=== PATIENT | male | born 1975 | race Caucasian/White ===

== ENCOUNTER 2016-10-29 01:49 | Inpatient (IN) | payer OTHER ==
--- NOTE | 2016-10-29 03:26 | ED ---
Psych HPI - General Source: patient, RN notes reviewed Mode of arrival: ambulatory <Ifeanyi Mario - Last Filed: 10/29/16 03:24> <Kd Carl - Last Filed: 10/29/16 07:16> - General Chief Complaint: Psychiatric Symptoms Stated Complaint: Mental Health Time Seen by Provider: 10/29/16 02:10 - History of Present Illness Initial Comments: 41-year-old male presents emergency department for psychiatric evaluation. Patient states that he is very depressed and suicidal. Patient states he just does not want to live anymore. Patient states that he has been rehab for alcohol and past states he has been sober but he may have started drinking again. Patient also uses marijuana. Patient states that he does have planned to kill himself though he does not want to tell me what this is. Patient states that he has seen psychiatrists in the past and has been placed on medication though she states that helping. Patient states he came here because he cannot do it anymore. (Ifeanyi Mario) - Related Data Home Medications Medication Instructions Recorded Confirmed QUEtiapine [SEROquel] 100 mg PO DAILY 10/29/16 10/29/16 Allergies Allergy/AdvReac Type Severity Reaction Status Date / Time No Known Allergies Allergy Verified 10/29/16 01:58 Review of Systems ROS Other: All systems not noted in ROS Statement are negative. <Ifeanyi Mario - Last Filed: 10/29/16 03:24> ROS Other: All systems not noted in ROS Statement are negative. <Kd Carl - Last Filed: 10/29/16 07:16> ROS Statement: Those systems with pertinent positive or pertinent negative responses have been documented in the HPI. Past Medical History Past Medical History: No Reported History Past Surgical History: No Surgical Hx Reported Past Psychological History: Bipolar, Depression Smoking Status: Current some day smoker Past Alcohol Use History: Daily Past Drug Use History: Marijuana <Ifeanyi Mario - Last Filed: 10/29/16 03:24> General Exam Limitations: no limitations General appearance: alert, in no apparent distress Head exam: Present: atraumatic, normocephalic, normal inspection Respiratory exam: Present: normal lung sounds bilaterally. Absent: respiratory distress, wheezes, rales, rhonchi, stridor Cardiovascular Exam: Present: regular rate, normal rhythm, normal heart sounds. Absent: systolic murmur, diastolic murmur, rubs, gallop, clicks Neurological exam: Present: alert, oriented X3, CN II-XII intact Psychiatric exam: Present: depressed Skin exam: Present: warm, dry, intact, normal color. Absent: rash <Ifeanyi Mario - Last Filed: 10/29/16 03:24> Course <Ifeanyi Mario - Last Filed: 10/29/16 03:24> <Kd Carl - Last Filed: 10/29/16 07:16> Vital Signs 10/29/16 10/29/16 01:52 06:00 Temperature 96.9 F L Pulse Rate 82 57 L Respiratory 18 18 Rate Blood Pressure 127/76 119/77 O2 Sat by Pulse 99 99 Oximetry - Reevaluation(s) Reevaluation #1: 10/29/16 07:13 Patient was reevaluated, no acute distress, no new complaints. Patient is currently awaiting admission to inpatient psychiatric treatment and evaluation. (Kd Carl) Medical Decision Making <Ifeanyi Mario - Last Filed: 10/29/16 03:24> <Kd Carl - Last Filed: 10/29/16 07:16> - Medical Decision Making 41-year-old male presented for suicidal ideation. Patient does admit to having a plan of killing himself in the bathtub. She was evaluated by EPS. Did recommend inpatient admission. Diagnosis: Depression, suicidal ideation (Kd Carl) - Lab Data Lab Results 10/29/16 Range/Units 02:23 Urine Opiates Screen Not Detected (NotDetected) Ur Oxycodone Screen Not Detected (NotDetected) Urine Methadone Screen Not Detected (NotDetected) Ur Propoxyphene Screen Not Detected (NotDetected) Ur Barbiturates Screen Not Detected (NotDetected) U Tricyclic Antidepress Not Detected (NotDetected) Ur Phencyclidine Scrn Not Detected (NotDetected) Ur Amphetamines Screen Not Detected (NotDetected) U Methamphetamines Scrn Not Detected (NotDetected) U Benzodiazepines Scrn Not Detected (NotDetected) Urine Cocaine Screen Not Detected (NotDetected) U Marijuana (THC) Screen Detected H (NotDetected) Disposition <Ifeanyi Mario M - Last Filed: 10/29/16 03:24> Decision to Admit Reason: Admit from EC <Kd aCrl - Last Filed: 10/29/16 07:16> Clinical Impression: Depression, Suicidal ideation Disposition: ADMITTED IP TO THIS [facility] Condition: Stable Referrals: Nonstaff,Physician [Primary Care Provider] - 1-2 days
[2016-10-29] MEDS ORDERED: MAG HYDROX/AL HYDROX/SIMETH 30 ML CUP PO PRN (07:43)
[2016-10-29] MEDS ORDERED: LORazepam 1 MG TAB PO PRN (07:43)
[2016-10-29] MEDS ORDERED: ACETAMINOPHEN TAB 325 MG TAB PO PRN (07:43)
[2016-10-29] MEDS ORDERED: MAGNESIUM HYDROXIDE 2,400 MG/10 ML CUP PO PRN (07:43)
[2016-10-29] MEDS ORDERED: OLANZapine ODT 5 MG TAB PO PRN (07:47)
[2016-10-29] MEDS ORDERED: QUEtiapine 100 MG TAB PO PRN (08:08)
[2016-10-29 10:59] VITALS: BMI 23.6
[2016-10-29] MEDS ORDERED: ONDANSETRON ODT 8 MG TAB.RAPDIS PO PRN (12:33)
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
[2016-10-29] MEDS: NICOTINE 21MG/24HR PATCH TRANSDERM SCH (12:45)
[2016-10-29] MEDS: NALTREXONE HCL 50 MG TAB PO SCH (13:12)
[2016-10-29] MEDS: QUEtiapine 100 MG TAB PO SCH (13:12)
[2016-10-29] MEDS: VENLAFAXINE HCL 37.5 MG TAB PO SCH (13:13)
[2016-10-29] MEDS: DIAZEPAM 5 MG TAB PO SCH ×3 (14:27→21:42)
--- NOTE | 2016-10-29 16:49 | P.HPMEDMHU ---
History of Present Illness H&P Date: 10/29/16 Chief Complaint: suicidal ideation Patient is a 41 -year-old male with a history of nicotine abuse, alcohol abuse, and illicit drug use who presented with suicidal ideation. He complains of decreased appetite with approximately a 60 pound weight loss in the last 6 months. He's been having some nausea and vomiting for the last 2 weeks. He has had some intermittent abdominal pain that feels like a hot knife underneath his left rib cage. It is intermittent in nature. He has not tried anything that has helped. He was told he had ulcers in the past and had been on a PPI but had to stop that after losing his insurance. Increased heartburn. Review of Systems General: no fever/chills, no rigors, no weight loss/weight gain, no change in appetite Eyes: No double vision, no unusual blurry vision, no loss of vision ENT: No rhinorrhea, congestion, no trush Cardiovascular: No chest pain, no palpitations, no syncope, no edema, Noo paroxysmal nocturnal dyspnea, No dizziness Pulmonary: No shortness of breath, no wheezing, no cough, hemoptysis Abdominal: No abdominal pain, no constipation, no diarrhea, + vomiting, no nausea, no distention Genitourinary: No dysuria, no urinary frequency, no hematuria, no unusual discharge/odor Neuro: No unusual paresthesias, no unusual paresis/paralysis, no headache Dermatologic: No unusual rashes, no unusual lesions, no unusual changes in nails Endocrinology: No intolerance to heat/cold, no excessive thirst,] no unusual fatigue Hematologic: No unusual bruising or bleeding, no unusual cervical lymphadenopathy Psychiatric: Suicidal ideation, + insomnia Past Medical History Additional Past Medical History / Comment(s): peptic ulcer History of Any Multi-Drug Resistant Organisms: None Reported Past Surgical History: No Surgical Hx Reported Past Anesthesia/Blood Transfusion Reactions: No Reported Reaction Additional Past Anesthesia/Blood Transfusion Reaction / Comment(s): Pt. denies having a blood transfusion. Past Psychological History: Bipolar, Depression Smoking Status: Former smoker Past Alcohol Use History: Daily, Occasional Additional Past Alcohol Use History / Comment(s): Pt. drank 1/5th on 10/27/16, a pint on 10/25 & 10/26/16, as he relapsed on alcohol. Shira. 0.140 on adm. Past Drug Use History: Marijuana Additional Drug Use History / Comment(s): UDS positive for MJ. - Past Family History Mother Additional Family Medical History / Comment(s): Multiple persons with myocardial infarction, Mother small brain tumor uknown if cancerous Medications and Allergies Home Medications Medication Instructions Recorded Confirmed Type QUEtiapine FUMARATE [SEROquel] 200 mg PO HS 10/29/16 10/29/16 History QUEtiapine [SEROquel] 100 mg PO DAILY 10/29/16 10/29/16 History Allergies Allergy/AdvReac Type Severity Reaction Status Date / Time No Known Allergies Allergy Verified 10/29/16 11:56 Physical Exam Osteopathic Statement: *. No significant issues noted on an osteopathic structural exam other than those noted in the History and Physical/Consult. Vitals: Vital Signs Temp Pulse Pulse Resp BP BP Pulse Ox 10/29/16 08:59 97.6 F 68 20 125/81 99 10/29/16 06:00 57 L 18 119/77 99 10/29/16 01:52 96.9 F L 82 18 127/76 99 Intake and Output 10/28/16 10/29/16 10/29/16 22:59 06:59 14:59 Other: Weight 83.915 kg 78.8 kg Patient Weight 10/30/16 06:59 Weight 78.8 kg General: non toxic, no distress, appears at stated age, normal weight Derm: no rashes, no lesions, no ulcers, no unusual ecchymoses, multiple pinpoint areas of erythema on chest and back Head: atraumatic, normocephalic, symmetric Eyes: EOMI, no lid lag, anicteric sclera, pupils equal round reactive to light ENT: no post nasal drip, no thrush , nearest patent, no pharyngeal erythema Neck: No thyromegaly, no cervical lymphadenopathy, trachea midline, supple Mouth: no lip lesion, mucus membranes moist Cardiovascular: S1S2 reg, no murmur, positive posterior tibial pulse bilateral, no edema , no JVD, no clubbing, no cyanosis, capillary refill less than 2 seconds Lungs: CTA bilateral, no rhonchi, no rales , no accessory muscle use Abdominal: soft, nontender to palpation, no guarding, no appreciable organomegaly, normal bowel sounds Ext: no gross muscle atrophy, muscle strength 5 out of 5 in all 4 extremities grossly, no contractures, Neuro: CN II-XI grossly intact, light touch intact all 4 extremities, finger to nose within normal limits, Psych: Alert, oriented, flat affect Cranial Nerve Examination - Cranial Nerves Cranial Nerve II- Optic: Intact Cranial Nerve III- Oculomotor: Intact Cranial Nerve IV- Trochlear: Intact Cranial Nerve V- Trigeminal: Intact Cranial Nerve - Abducens: Intact Cranial Nerve VII- Facial: Intact Cranial Nerve VIII- Auditory: Intact Cranial Nerve IX- Glossopharyngeal: Intact Cranial Nerve X- Vagus: Intact Cranial Nerve XI- Accessory: Intact Cranial Nerve XII- Hypoglossal: Intact Results Labs: Abnormal Lab Results - Last 24 Hours (Table) 10/29/16 Range/Units 02:23 U Marijuana (THC) Screen Detected H (NotDetected) Assessment and Plan Plan: #Nausea and vomiting with history of acid reflux-start twice a day PPI, patient told to prostatitis see him again if this does not improve #Tobacco abuse-cessation recommended #Alcohol abuse-[facility] protocol, Thiamine and folic acid supplementation Thank you for allowing us to participate in the care of this patient. We will follow peripherally. Do not hesitate to contact us with questions. Someone can be reached from the [facility] hospitalist group at all hours of the day at [phone].
[2016-10-29] MEDS: PANTOPRAZOLE 40 MG TABLET PO SCH (18:06)
[2016-10-29] MEDS: QUEtiapine 200 MG TAB PO SCH (21:42)
[2016-10-30] MEDS: PANTOPRAZOLE 40 MG TABLET PO SCH ×2 (07:56→16:31)
[2016-10-30] MEDS: NALTREXONE HCL 50 MG TAB PO SCH (08:49)
[2016-10-30] MEDS: QUEtiapine 100 MG TAB PO SCH (08:50)
[2016-10-30] MEDS: DIAZEPAM 5 MG TAB PO SCH ×3 (08:50→21:00)
[2016-10-30] MEDS: NICOTINE 21MG/24HR PATCH TRANSDERM SCH (08:52)
[2016-10-30 09:02] LABS: Basophils % (A) 1 %; CH 31.7; CHCM 36.5; Eosinophils # (A) 0.1 k/uL (0-0.7); Eosinophils % (A) 2 %; HDW 2.77; HGB 16.5 gm/dL (13.0-17.5); Luc # (Auto) 0.07; Luc % (Auto) 1; Lymphocytes % (A) 19 %; MCH 31.3 pg (25.0-35.0); MCHC 35.9 g/dL (31.0-37.0); MCV 87.1 fL (80.0-100.0); Mean Platelet Volume 6.8; Monocytes # (A) 0.3 k/uL (0-1.0); Monocytes % (A) 6 %; Neutrophils # (A) 3.8 k/uL (1.3-7.7); Neutrophils % (A) 72 %; RBC 5.28 m/uL (4.30-5.90); RDW 13.7 % (11.5-15.5); WBC 5.3 k/uL (3.8-10.6)
[2016-10-30 09:18] LABS: ALT 33 U/L (21-72); AST 22 U/L (17-59); Alkaline Phosphatase 78 U/L (38-126); Anion Gap 10 mmol/L; Blood Urea Nitrogen 14 mg/dL (9-20); Calcium 9.5 mg/dL (8.4-10.2); Carbon Dioxide 26 mmol/L (22-30); Chloride 103 mmol/L (98-107); Glucose 97 mg/dL (74-99); Non-African American GFR(MDRD) >60 (>60 ml/min/1.73 sqM); Potassium 4.1 mmol/L (3.5-5.1); Sodium 139 mmol/L (137-145); Total Bilirubin 2.4 mg/dL (0.2-1.3); Total Protein 6.3 g/dL (6.3-8.2)
[2016-10-30] MEDS: VENLAFAXINE HCL 37.5 MG TAB PO SCH (09:36)
[2016-10-30] MEDS: THIAMINE 100 MG TAB PO SCH (12:19)
[2016-10-30] MEDS: FOLIC ACID 1 MG TAB PO SCH (12:19)
--- NOTE | 2016-10-30 12:19 | P.PN ---
Progress Note - Text Date of service: 10/30/2016 Chief complaint: "I feel I want to go home" Subjective: The patient has been seen today as follow-up, chart reviewed, case discussed with the treatment team. Patient slept about 4-6 hours last night. Patient has been not going to groups and other unit activities. Patient reports still has poor appetite problems. The patient had worsening of alcohol withdrawal symptoms last night and he developed shaking, sweating, increased HR and nausea. He has been started on Valium taper and CIWA monitoring. He reports today has been feeling better, and denies shaking, tremors or sweating today. He reports nausea is better and denies vomiting. CIWA trending down and earlier today was 4. Patient has to complete Valium taper before discharge. He has been explained about the risk of alcohol withdrawal. Patient minimized depression and denies suicidal thoughts today. He was fixated on going home and feels "crisis is gone." The patient reports still has some anxiety and sometimes racing thoughts. In general patient tried to minimized symptoms to get discharged. The patient is compliant with his medications and denies any adverse reactions. Review of other systems: Patient denies any physical symptoms besides what has been mentioned above. No breathing problems, no chest pain reported today. Objective: Vitals has been reviewed. Mental status examination; Appearance: The patient appears older than stated age, poorly groomed and disheveled, no specific features. Gait/posture: Slight imbalance but able to support himself, No abnormal movements. Attitude and behavior: not fully engaged, superficially cooperative, intermittent eye contact. Motor activity: Increased psychomotor activity Speech: Soft, low tone Mood: Depressed Affect: Blunted Thought form: goal-directed, linear, coherent. Thought content: Non-delusional, denies suicidal thoughts. denies homicidal thoughts. Perception: Denies any auditory or visual hallucinations Attention: No impairment. Orientation: Patient patient was fully oriented to time place person and situation. Insight: Patient has limited insight about his psychiatric disorder. Judgment: Patient has limited judgment about his psychiatric treatment. Assessment: Unspecified mood disorder Rule out Bipolar II disorder, depressive episodes without psychosis Alcohol use disorder, severe Cannabis use disorder, severe Plan: Continue with inpatient psychiatric hospitalization for monitoring and continue treatment. Continue group therapy and other unit activities. Continue follow up with medical team to address physical problems including on Bilirubin level and elevated Creatinine Continue psychiatric medications: Effexor XR 37.5 mg PO daily for depression symptoms Seroquel 100mg am and 200mg HS as mood stabilizer for mood symptoms Naltrexone 25mg PO daily for 3 days then 50mg daily for alcohol cravings CIWA monitoriong for alcohol withdrawal Valium taper for alcohol withdrawal started yesterday and will be completed on Monday. Discharge planning is ongoing.
[2016-10-30] MEDS: QUEtiapine 200 MG TAB PO SCH (21:00)
[2016-10-31 06:19] VITALS: BP 132/70; PULSE 62; RESP 20; TEMP 97.7
[2016-10-31] MEDS: NICOTINE 21MG/24HR PATCH TRANSDERM SCH (08:23)
[2016-10-31] MEDS: FOLIC ACID 1 MG TAB PO SCH (08:24)
[2016-10-31] MEDS: QUEtiapine 100 MG TAB PO SCH (08:24)
[2016-10-31] MEDS: NALTREXONE HCL 50 MG TAB PO SCH (08:24)
[2016-10-31] MEDS: VENLAFAXINE HCL 37.5 MG TAB PO SCH (08:24)
[2016-10-31] MEDS: THIAMINE 100 MG TAB PO SCH (08:24)
[2016-10-31] MEDS: PANTOPRAZOLE 40 MG TABLET PO SCH (08:24)
[2016-10-31] MEDS ORDERED: DIAZEPAM 5 MG TAB PO SCH (09:00)
[2016-11-01] MEDS ORDERED: DIAZEPAM 5 MG TAB PO SCH (09:00)
--- NOTE | 2016-11-02 10:14 | DS ---
DATE OF SERVICE: 10/31/2016. DATE OF ADMISSION: 10/29/2016. DATE OF DISCHARGE : 10/31/2016. ADMISSION AND DISCHARGE DIAGNOSIS: 1. Unspecified mood disorder. 2. Rule out bipolar 2 disorder. 3. Depressive episodes without psychosis. 4. Alcohol use disorder, severe. 5. Cannibis use disorder, severe. HISTORY OF PRESENTING ILLNESS: The patient was admitted due to depression with suicidal thoughts, contemplating drowning himself int he bathtub. He reported worsening depression since March. He reported a history of bipolar disorder. He had been on Seroquel which he said was helping keep his bipolar disorder stable. He felt overwhelmed at his job. He had relapsed to alcohol use after 2 years of sobriety. He smokes marijuana once or twice daily. He had a full range of depression symptoms. He reported severe anxiety and panic attacks. He was admitted for further evaluation. For further history, please refer to the psychiatric admission note of Dr. Paz. PAST MEDICAL HISTORY AND PHYSICAL EXAM: As per Dr. Gee. MENTAL STATUS EXAM: The patient had some difficulties with balance, he had intermittent eye contact, there was increased psychomotor activity. Speech was soft and low tone. His mood was depressed, affect blunted. Thoughts appropriate. There was no indication of thought disorder. Cognition was clear. DIAGNOSTIC STUDIES: CBC and comprehensive metabolic profile were unremarkable except for an elevated creatinine of 1.29. TSH 2.0, urine drug screen positive for marijuana. COURSE OF HOSPITALIZATION: The patient was admitted for a comprehensive medical , psychiatric and psychosocial evaluation. We made efforts to engage the patient in individual and group therapeutic activities. He was continued on his outpatient medication of Seroquel 100 mg in the morning, 200 mg at bedtime. He was also started on ReVia 50 mg a day for issues related to withdrawal. He also was started on Effexor XR 75 mg a day. The patient did not attend groups. He did not show significant withdrawal issues. On the first day of admission he did have one CIWA score of 18. He had a subsequent score of 10 and then the remainder of the scores were all near 0. He very much was focused on discharge. He was stating that the thoughts of suicide were just situationally based and that he had plans in place to help deal with his needs. He did not have insurance and was willing to be referred to [facility]. He actively engaged in discharge planning. He noted that he has medications at home, namely Seroquel and felt that he was doing fairly well with his medications. He pushed for an early discharge in part because didn' t have insurance. He believed if he was discharged, he could get back to work and his other responsibilities. He was very clear about the idea that he was not having thoughts of self harm beyond just a situational situation leading up to his hospitalization. He was focused on not using alcohol or marijuana. He had done fairly well in regards to staying off of alcohol and seemed to have reasonable insight in regards to need to stay completely off of marijuana as well. During his hospitalization, he had one period where he had elevated vital signs, including a pulse of 130 and a blood pressure of 142/68, otherwise the remainder of his vital signs that were checked closely were within normal range. CONDITION ON DISCHARGE: The patient was stable, his mood was improved. He had made efforts to get engaged in the discharge planning process. He reported motivation towards maintaining off of abusive substances. RECOMMENDATIONS AND FOLLOW UP: The patient is discharged to home. He will continue Seroquel 100 mg in the morning, 200 mg in the evening. He indicated that he has a prescription for these medications with at least one refill. I did discontinue Effexor XR given that he only had a very short hospital stay and that there was not adequate time to fully assess the medication at a therapeutic dose. I provided him a script of ReVia 50 mg daily. The patient was unsure whether he would be able to fill that prescription at present because of lack of insurance. He has a follow up appointment at [facility], 10/23/16 at 8:30 in the morning. He will address further medication issues at that time. TAWNYA
== END 2016-10-31 14:45 | disposition home or self-care (01) | DRG 885 ==
LOC: EC 01:49 → 3MHU 07:39
PROVIDERS: ADMIT Psychiatry & Neurology Psychiatry; ATTEND Psychiatry & Neurology Psychiatry
DX: F31.9 Bipolar disorder, unspecified (principal); R45.851 Suicidal ideations; F10.239 Alcohol dependence with withdrawal, unspecified; F12.20 Cannabis dependence, uncomplicated; Z71.6 Tobacco abuse counseling; F17.220 Nicotine dependence, chewing tobacco, uncomplicated; F41.0 Panic disorder [episodic paroxysmal anxiety]; Z79.899 Other long term (current) drug therapy; Z91.5 Personal history of self-harm; Z60.2 Problems related to living alone; Z56.0 Unemployment, unspecified; Z81.8 Family history of other mental and behavioral disorders; R11.2 Nausea with vomiting, unspecified; K21.9 Gastro-esophageal reflux disease without esophagitis; N41.9 Inflammatory disease of prostate, unspecified
CPT/HCPCS: 80053; 80306; 82075; 84443; 85025

== ENCOUNTER 2017-12-10 23:47 | Emergency (ER) | payer MEDICAID, OTHER ==
[2017-12-10 23:55] VITALS: RESP 18
[2017-12-11] MEDS ORDERED: ORPHENADRINE 30 MG/ML 2 ML VIAL IM STA (00:37)
[2017-12-11] MEDS ORDERED: KETOROLAC 30 MG/ML 1 ML VIAL IM STA (00:37)
--- NOTE | 2017-12-11 00:42 | ED ---
Back Pain HPI - General Chief Complaint: Back Pain/Injury Stated Complaint: [facility] back pain Time Seen by Provider: 12/11/17 00:25 Source: patient, RN notes reviewed Mode of arrival: ambulatory Limitations: no limitations - History of Present Illness Initial Comments: This is a 42-year-old male who presents to the emergency department with chief complaint work-related back pain. 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 He states that 2 weeks ago he injured his back while lifting a fixture. Patient states that tonight he was kneeling, went to lift a fixture and felt instant tightening and pulling sensation along the low back. He reports muscle spasms. He states that he has been taking Motrin at home for his previous back injury. He denies saddle paresthesias or loss of bladder or bowel function. He denies IV drug use. He denies radiation of pain down the legs or numbness or tingling. Denies fevers or chills, chest pain or shortness of breath. - Related Data Home Medications Medication Instructions Recorded Confirmed QUEtiapine FUMARATE [SEROquel] 200 mg PO HS 10/29/16 12/10/17 QUEtiapine [SEROquel] 100 mg PO DAILY 10/29/16 12/10/17 Previous Rx's Medication Instructions Recorded Cyclobenzaprine [Flexeril] 10 mg PO TID #15 tab 12/11/17 Allergies Allergy/AdvReac Type Severity Reaction Status Date / Time No Known Allergies Allergy Verified 12/10/17 23:54 Review of Systems ROS Statement: Those systems with pertinent positive or pertinent negative responses have been documented in the HPI. ROS Other: All systems not noted in ROS Statement are negative. Past Medical History Past Medical History: No Reported History Additional Past Medical History / Comment(s): peptic ulcer History of Any Multi-Drug Resistant Organisms: None Reported Past Surgical History: No Surgical Hx Reported Past Anesthesia/Blood Transfusion Reactions: No Reported Reaction Additional Past Anesthesia/Blood Transfusion Reaction / Comment(s): Pt. denies having a blood transfusion. Past Psychological History: Bipolar, Depression Smoking Status: Former smoker Past Alcohol Use History: None Reported Past Drug Use History: None Reported - Past Family History Mother Additional Family Medical History / Comment(s): Multiple persons with myocardial infarction, Mother small brain tumor uknown if cancerous General Exam - General Exam Comments Initial Comments: General: Awake and alert, well-developed; in no apparent distress. HEENT: Head atraumatic, normocephalic. Pupils are equal, round and reactive to light. Extraocular movements intact. Oropharynx moist without erythema or exudate. Neck: Supple. Normal ROM. Cardiovascular: Regular rate and rhythm. No murmurs, rubs or gallops. Chest symmetrical. Pedal pulses 2+ equal and palpable bilaterally. Respiratory: Lungs clear to auscultation bilaterally. No wheezes, rales or rhonchi. Normal respiratory effort with no use of accessory muscles. Musculoskeletal: Normal ROM, no tenderness bilateral upper and lower extremities. Ambulating normally. Skin: [place], warm and dry without rashes or lesions. Neurological: Alert and oriented x3. CN II-XII grossly intact. Speech is fluent and answers are appropriate. No focal neuro deficits. Psychiatric: Normal mood and affect. No overt signs of depression or anxiety noted. Limitations: no limitations Back exam: Present: normal inspection, full ROM, paraspinal tenderness ( bilateral lumbar). Absent: vertebral tenderness Course Vital Signs 12/10/17 23:51 Temperature 97.8 F Pulse Rate 94 Respiratory 18 Rate Blood Pressure 115/80 O2 Sat by Pulse 98 Oximetry Medical Decision Making - Medical Decision Making This is a 42-year-old male who presents to the emergency department with chief complaint of low back injury. Patient reports lifting a fixture at work this evening and feeling a tightening and pulling sensation along the low back. Patient states he injured his low back 2 weeks ago at work as well. He denies saddle paresthesias or loss of bladder or bowel function. Denies falls. Patient is neurovascularly intact. Given Toradol and Norflex while in the emergency department. Patient will be provided with a prescription for muscle relaxers. He states he takes Motrin already at home for previous back injury. Vitals are stable and he is in no acute distress. He will be discharged home at this time. Patient is in agreement with plan and voices understanding. All questions were answered. Disposition Clinical Impression: Strain of lumbar region Disposition: HOME SELF-CARE Condition: Good Instructions: Acute Low Back Pain (ED), Low Back Strain (ED) Additional Instructions: Please take medications as prescribed. Please follow up with primary care provider within 1-2 days. Return to emergency department if symptoms should worsen or any concerns arise. Prescriptions: Cyclobenzaprine [Flexeril] 10 mg PO TID #15 tab Is patient prescribed a controlled substance at d/c from ED?: No Referrals: Nonstaff,Physician [Primary Care Provider] - 1-2 days Time of Disposition: 00:42
[2017-12-11 01:10] VITALS: BP 119/80; PULSE 89; TEMP 97.7
== END 2017-12-11 01:09 | disposition home or self-care (01) ==
LOC: EC 23:47
DX: S39.012A Strain of muscle, fascia and tendon of lower back, initial encounter (principal); F31.9 Bipolar disorder, unspecified; Z87.891 Personal history of nicotine dependence; Z79.899 Other long term (current) drug therapy; X50.9XXA Other and unspecified overexertion or strenuous movements or postures, initial encounter; Y93.89 Activity, other specified; Y92.69 Other specified industrial and construction area as the place of occurrence of the external cause; Y99.0 Civilian activity done for income or pay
CPT/HCPCS: 99283; 96372 ×2; J2360; J1885

== ENCOUNTER → 2017-12-13 | Outpatient (CLI) | payer OTHER ==
--- NOTE | 2017-12-13 12:47 | XR ---
EXAMINATION TYPE: XR lumbar spine 2 or 3V DATE OF EXAM: 12/13/2017 CLINICAL HISTORY: Back pain after weight lifting injury. TECHNIQUE: Frontal and lateral images of the lumbar spine are obtained. COMPARISON: None FINDINGS: There are 5 lumbar type vertebral bodies identified. The lumbar spine shows satisfactory alignment without evidence of acute fracture or dislocation. Vertebral body heights and disk space he ights are within normal limits. The overlying soft tissue appears unremarkable. IMPRESSION: No acute fracture or malalignment is seen in the lumbar spine.
== END ==
LOC: RADXRMAIN 12:28
PROVIDERS: ATTEND Emergency Medicine
DX: S39.012A Strain of muscle, fascia and tendon of lower back, initial encounter (principal)
CPT/HCPCS: 72100

== ENCOUNTER 2022-02-16 02:36 | Emergency (ER) | payer SELFPAY ==
[2022-02-16 02:49] VITALS: BP 136/84; PULSE 70; RESP 18; TEMP 98.1
== END 2022-02-16 03:50 | disposition left against medical advice (07) ==
LOC: EC 02:36
DX: Z53.21 Procedure and treatment not carried out due to patient leaving prior to being seen by health care provider (principal)
CPT/HCPCS: 93005; 99499

== ENCOUNTER → 2022-05-31 | Outpatient (CLI) | payer BC ==
--- NOTE | 2022-06-01 07:21 | XR ---
EXAMINATION TYPE: XR chest 2V DATE OF EXAM: 05/31/2022 COMPARISON: None INDICATION: Severe left-sided chest pain TECHNIQUE: Frontal and lateral views of the chest are obtained. FINDINGS: The heart size is normal. The pulmonary vasculature is normal. The lungs are clear. Pectus excavatum on the lateral projection is evident. IMPRESSION: 1. No acute pulmonary process.
== END | disposition home or self-care (01) ==
LOC: RADXRMAIN 17:38
PROVIDERS: ATTEND Nurse Practitioner Family
DX: Q67.6 Pectus excavatum (principal)
CPT/HCPCS: 71046

== ENCOUNTER 2022-12-07 23:28 | Emergency (ER) | payer BC, OTHER ==
[2022-12-07 23:39] VITALS: RESP 18; TEMP 97.5
--- NOTE | 2022-12-08 01:00 | ED ---
Chest Pain HPI - General Chief Complaint: Chest Pain Stated Complaint: Chest Pain, Neck Pain Time Seen by Provider: 12/08/22 00:46 Source: patient Mode of arrival: ambulatory Limitations: no limitations - History of Present Illness Initial Comments: Demarcus is a pleasant 47-year-old gentleman with a history of severe pectus excavatum was not surgically repaired as a child. The patient presents to ER today for evaluation of an episode of chest pain. Patient reports that over the past few years he's had episodes of stabbing sharp pain when he turns to the left and bends over. Today he went to feed his animal and he may bowel movement and felt a sharp stabbing pain in his chest. He had some intermittent discomfort throughout the day that felt like a bruise here to the ER for an EKG to be evaluated. Patient states he currently doesn't have any insurance and doesn't want any blood work or additional testing. Patient is established with thoracic surgery [facility] with the plan for likely repair later this year. - Related Data Home Medications Medication Instructions Recorded Confirmed QUEtiapine FUMARATE [SEROquel] 200 mg PO HS 10/29/16 12/10/17 QUEtiapine [SEROquel] 100 mg PO DAILY 10/29/16 12/10/17 Previous Rx's Medication Instructions Recorded Cyclobenzaprine [Flexeril] 10 mg PO TID #15 tab 12/11/17 Allergies Allergy/AdvReac Type Severity Reaction Status Date / Time No Known Allergies Allergy Verified 12/07/22 23:32 Review of Systems ROS Statement: Those systems with pertinent positive or pertinent negative responses have been documented in the HPI. ROS Other: All systems not noted in ROS Statement are negative. EKG Findings - EKG Comments: EKG Findings:: EKG interpreted by ri EKG obtained due to complaint of chest pain, EKG obtained at 2339 rate is 68 rhythm is sinus with leftward axis, normal intervals, [place] 6165, QRS 89 QTc 380 there are no acute ST elevations or depressions no evidence of acute ischemia or infarction. Past Medical History Past Medical History: No Reported History Additional Past Medical History / Comment(s): peptic ulcer History of Any Multi-Drug Resistant Organisms: None Reported Past Surgical History: No Surgical Hx Reported Past Anesthesia/Blood Transfusion Reactions: No Reported Reaction Additional Past Anesthesia/Blood Transfusion Reaction / Comment(s): Pt. denies having a blood transfusion. Past Psychological History: Bipolar, Depression Smoking Status: Light tobacco smoker Past Alcohol Use History: None Reported Past Drug Use History: Marijuana - Past Family History Mother Additional Family Medical History / Comment(s): Multiple persons with myocardial infarction, Mother small brain tumor uknown if cancerous General Exam - General Exam Comments Initial Comments: Physical Exam GENERAL: Patient is well-developed and well-nourished. Patient is nontoxic and well- hydrated and is in no distress. HENT: Normocephalic, Atraumatic. EYES: PERRL, EOMI PULMONARY: Unlabored respirations. No audible rales rhonchi or wheezing was noted. CARDIOVASCULAR: Pectus excavatum There is a regular rate and rhythm without any murmurs gallops or rubs. ABDOMEN: Soft and nontender with normal bowel sounds. SKIN: Skin is clear with no lesions or rashes and otherwise unremarkable. : Deferred NEUROLOGIC: Patient is alert and oriented x3. Moving all extremities spontaneously MUSCULOSKELETAL: Normal extremities with adequate strength and full range of motion. No lower extremity swelling or edema. No calf tenderness. PSYCHIATRIC: Normal psychiatric evaluation. Limitations: no limitations Course Vital Signs 12/07/22 12/08/22 23:32 01:29 Temperature 97.5 F L Pulse Rate 78 74 Respiratory 18 18 Rate Blood Pressure 120/77 123/80 O2 Sat by Pulse 98 98 Oximetry Chest Pain MDM - MDM Was pt. sent in by a medical professional or institution (, PA, ROUTE SALESPERSON, urgent care, hospital, or alf...) When possible be specific @ -No Did you speak to anyone other than the patient for history (EMS, parent, family, police, friend...)? What history was obtained from this source @ -No Did you review nursing and triage notes (agree or disagree)? Why? @ -I reviewed and agree with nursing and triage notes Were old charts reviewed (outside hosp., previous admission, EMS record, old EKG, old radiological studies, urgent care reports/EKG's, alf records)? Report findings @ -No old charts were reviewed Differential Diagnosis (chest pain, altered mental status, abdominal pain women, abdominal pain men, vaginal bleeding, weakness, fever, dyspnea, syncope, headache, dizziness, GI bleed, back pain, seizure, CVA, palpatations, mental health, musculoskeletal)? @ -Differential Chest Pain: Stable Angina, Unstable Angina, STEMI, NSTEMI Aortic Dissection, Pneumothorax, Musculoskeletal, Esophageal Spasm GERD, Cholecystitis, Pancreatitis, Zoster, this is not meant to be an all-inclusive list. EKG interpreted by me (3pts min.). @ -As above X-rays interpreted by me (1pt min.). @ -Patient refused CT interpreted by me (1pt min.). @ -None done U/S interpreted by me (1pt. min.). @ -None done What testing was considered but not performed or refused? (CT, X-rays, U/S, labs)? Why? @ -Patient refused labs and x-ray What meds were considered but not given or refused? Why? @ -None Did you discuss the management of the patient with other professionals (professionals i.e. , PA, ROUTE SALESPERSON, lab, RT, psych nurse, perinatal social worker, field service technician, teacher, chief information security officer, disease case manager rn)? Give summary @ -No Was smoking cessation discussed for >3mins.? @ -No Was critical care preformed (if so, how long)? @ -No Were there social determinants of health that impacted care today? How? (Homelessness, low income, unemployed, alcoholism, drug addiction, transportation, low edu. Level, literacy, decrease access to med. care, prison, rehab)? @ -No medical insurance, lack of access to care Was there de-escalation of care discussed even if they declined (Discuss DNR or withdrawal of care, Hospice)? DNR status @ -No What co-morbidities impacted this encounter? (DM, HTN, Smoking, COPD, CAD, Cancer, CVA, ARF, Chemo, Hep., AIDS, mental health diagnosis, sleep apnea, mor bid obesity)? @ -None Was patient admitted / discharged? Hospital course, mention meds given and route, prescriptions, significant lab abnormalities, going to OR and other pertinent info. @ -Discharge Patient was seen and evaluated, EKG was nonischemic. Patient was assured by the normal EKG and declined any further workup. Patient had pain earlier today he is currently chest pain-free. States his pain is reproducible musculoskeletal chest pain has by certain movements. I did advise the patient we can't fully rule out cardiac etiology or other pathology including pneumonia, pneumothorax, pulmonary embolism without further workup patient is hemodynamically stable no significant vital sign abnormalities feeling well and states he was just here for EKG. Undiagnosed new problem with uncertain prognosis? @ -No Drug Therapy requiring intensive monitoring for toxicity (Heparin, Nitro, Insulin, Cardizem)? @ -No Were any procedures done? @ -No Diagnosis/symptom? @ Musculoskeletal chest pain Acute, or Chronic, or Acute on Chronic? @ -default Uncomplicated (without systemic symptoms) or Complicated (systemic symptoms)? @ -default Side effects of treatment? @ -No Exacerbation, Progression, or Severe Exacerbation? @ -No Poses a threat to life or bodily function? How? (Chest pain, [place], [place], pneumonia, PE, COPD, DKA, ARF, appy, cholecystitis, CVA, Diverticulitis, Homicidal, Suicidal, threat to staff... and all critical care pts) @ -No Disposition Clinical Impression: Musculoskeletal chest pain, Pectus excavatum Disposition: HOME SELF-CARE Condition: Stable Additional Instructions: Return to the ER for any recurrence or worsening chest pain Is patient prescribed a controlled substance at d/c from ED?: No Referrals: Demarcus Mayorga MD [Primary Care Provider] - 1-2 days
[2022-12-08 01:38] VITALS: BP 123/80; PULSE 74
== END 2022-12-08 01:30 | disposition home or self-care (01) ==
LOC: EC 23:28
DX: R07.89 Other chest pain (principal); Q67.6 Pectus excavatum; F31.9 Bipolar disorder, unspecified; F17.200 Nicotine dependence, unspecified, uncomplicated; F12.90 Cannabis use, unspecified, uncomplicated; Z79.899 Other long term (current) drug therapy
CPT/HCPCS: 99284

== ENCOUNTER 2023-08-16 20:28 | Emergency (ER) | payer BC ==
[2023-08-16 21:13] VITALS: RESP 18
--- NOTE | 2023-08-16 21:22 | ED ---
Back Pain HPI - General Chief Complaint: Back Pain/Injury Stated Complaint: low back pain Time Seen by Provider: 08/16/23 21:21 Source: patient Limitations: no limitations - History of Present Illness Initial Comments: 48-year-old male presenting with chief complaint of back pain. Pain is present in the lower back and shoots down the right leg. Has been ongoing for about 4 days. Patient states the pain started after a long day at work. No loss of bowel or bladder control or saddle paresthesia. No weakness. No fever, nausea, vomiting, dysuria, hematuria. - Related Data Home Medications Medication Instructions Recorded Confirmed QUEtiapine FUMARATE [SEROquel] 200 mg PO HS 10/29/16 12/10/17 QUEtiapine [SEROquel] 100 mg PO DAILY 10/29/16 12/10/17 Previous Rx's Medication Instructions Recorded Cyclobenzaprine [Flexeril] 10 mg PO TID #15 tab 12/11/17 Allergies Allergy/AdvReac Type Severity Reaction Status Date / Time No Known Allergies Allergy Verified 08/16/23 21:10 Review of Systems ROS Statement: Those systems with pertinent positive or pertinent negative responses have been documented in the HPI. ROS Other: All systems not noted in ROS Statement are negative. Past Medical History Past Medical History: No Reported History Additional Past Medical History / Comment(s): peptic ulcer History of Any Multi-Drug Resistant Organisms: None Reported Past Surgical History: No Surgical Hx Reported Past Anesthesia/Blood Transfusion Reactions: No Reported Reaction Additional Past Anesthesia/Blood Transfusion Reaction / Comment(s): Pt. denies having a blood transfusion. Past Psychological History: Bipolar, Depression Smoking Status: Light tobacco smoker Past Alcohol Use History: None Reported Past Drug Use History: Marijuana - Past Family History Mother Additional Family Medical History / Comment(s): Multiple persons with myocardial infarction, Mother small brain tumor uknown if cancerous General Exam - General Exam Comments Initial Comments: Visual Physical Exam Vital signs reviewed General: Well-appearing, nontoxic, no acute distress. Head: Normocephalic, atraumatic Eyes: PERRLA, EOMI ENT: Airway patent Chest: Nonlabored breathing Skin: No visual rash, normal skin tone Neuro: Alert and oriented 3 Musculoskeletal: No gross abnormalities Limitations: no limitations General appearance: alert, in no apparent distress Head exam: Present: atraumatic, normocephalic Eye exam: Present: normal appearance, EOMI Neck exam: Present: normal inspection. Absent: meningismus Respiratory exam: Absent: respiratory distress Cardiovascular Exam: Present: regular rate Back exam: Present: normal inspection, tenderness Neurological exam: Present: alert, oriented X3 Psychiatric exam: Present: normal affect, normal mood Skin exam: Present: normal color Course Vital Signs 08/16/23 08/16/23 21:10 22:56 Temperature 98.3 F 97.6 F Pulse Rate 74 70 Respiratory 18 18 Rate Blood Pressure 108/69 112/74 O2 Sat by Pulse 99 97 Oximetry Medical Decision Making - Medical Decision Making Was pt. sent in by a medical professional or institution (, PA, ENVIRONMENTAL FIELD OFFICE MANAGER, urgent care, hospital, or assisted...) When possible be specific @ -No Did you speak to anyone other than the patient for history (EMS, parent, family, police, friend...)? What history was obtained from this source @ -No Did you review nursing and triage notes (agree or disagree)? Why? @ -I reviewed and agree with nursing and triage notes Were old charts reviewed (outside hosp., previous admission, EMS record, old EKG, old radiological studies, urgent care reports/EKG's, assisted records)? Report findings @ -No old charts were reviewed Differential Diagnosis (chest pain, altered mental status, abdominal pain women, abdominal pain men, vaginal bleeding, weakness, fever, dyspnea, syncope, headache, dizziness, GI bleed, back pain, seizure, CVA, palpatations, mental health, musculoskeletal)? @ - [facility] Differential Back Pain: Strain, zoster, cauda equina syndrome, epidural abscess, vertebral osteomyelitis, discitis, fracture, subluxation, disc herniation, DJD, spinal stenosis, dissection, AAA, pancreatitis, peptic ulcer disease, pyelonephritis, kidney stone this is not meant to be an all-inclusive list. EKG interpreted by me (3pts min.). @ -As above X-rays interpreted by me (1pt min.). @ -X-ray shows no acute fracture. Mild multilevel disc degeneration in the lower lumbar spine CT interpreted by me (1pt min.). @ -None done U/S interpreted by me (1pt. min.). @ -None done What testing was considered but not performed or refused? (CT, X-rays, U/S, labs)? Why? @ -None What meds were considered but not given or refused? Why? @ -None Did you discuss the management of the patient with other professionals (professionals i.e. , PA, ENVIRONMENTAL FIELD OFFICE MANAGER, lab, RT, psych nurse, protective services social worker, long line teamster, teacher, parachute officer, shoe caser)? Give summary @ -No Was smoking cessation discussed for >3mins.? @ -No Was critical care preformed (if so, how long)? @ -No Were there social determinants of health that impacted care today? How? (Homelessness, low income, unemployed, alcoholism, drug addiction, transportation, low edu. Level, literacy, decrease access to med. care, snf, rehab)? @ -No Was there de-escalation of care discussed even if they declined (Discuss DNR or withdrawal of care, Hospice)? DNR status @ -No What co-morbidities impacted this encounter? (DM, HTN, Smoking, COPD, CAD, Cancer, CVA, ARF, Chemo, Hep., AIDS, mental health diagnosis, sleep apnea, morbid obesity)? @ -None Was patient admitted / discharged? Hospital course, mention meds given and route, prescriptions, significant lab abnormalities, going to OR and other pertinent info. @ -48-year-old male presenting with chief complaint of back pain. No red flag symptoms. X-ray is negative. Does show some degenerative changes. Patient is treated with pain medication and provided with work note. Discharged home. Follow-up with PCP. Report back to ER with any new or worsening symptoms. Discussed return parameters and answered all questions. Patient conveyed verbal understanding and agreed to the plan. I discussed this case in detail with my attending Dr. Howard Undiagnosed new problem with uncertain prognosis? @ -No Drug Therapy requiring intensive monitoring for toxicity (Heparin, Nitro, Insulin, Cardizem)? @ -No Were any procedures done? @ -No Diagnosis/symptom? @ -Lumbar strain Acute, or Chronic, or Acute on Chronic? @ -Acute Uncomplicated (without systemic symptoms) or Complicated (systemic symptoms)? @ -Uncomplicated Side effects of treatment? @ -No Exacerbation, Progression, or Severe Exacerbation? @ -No Poses a threat to life or bodily function? How? (Chest pain, [place], MA, pneumonia, PE, COPD, DKA, ARF, appy, cholecystitis, CVA, Diverticulitis, Homicidal, Suicidal, threat to staff... and all critical care pts) @ -Unlikely Disposition Clinical Impression: Strain of lumbar region Disposition: HOME SELF-CARE Condition: Good Instructions (If sedation given, give patient instructions): Acute Low Back Pain (ED) Additional Instructions: Follow-up with PCP. Report back to ER with any new or worsening symptoms. Is patient prescribed a controlled substance at d/c from ED?: No Referrals: Demarcus Mayorga MD [Primary Care Provider] - 1-2 days Time of Disposition: 22:38
--- NOTE | 2023-08-16 21:47 | XR ---
EXAMINATION TYPE: XR lumbar spine 2 or 3V DATE OF EXAM: 08/16/2023 9:43 PM CLINICAL INDICATION:Male, 48 years old with history of pain; [facility] COMPARISON: None TECHNIQUE: Frontal, lateral and coned in L5-S1 lateral views of the spine. FINDINGS: No evidence of any acute osseous pathology. No evidence of loss of vertebral body height i s seen. There is normal alignment of the lumbar vertebral bodies. Mild degenerative changes of the fa cet arthropathy, most pronounced at the L4-L5 and L5-S1 levels IMPRESSION: 1. No acute fracture. 2. 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
[2023-08-16] MEDS: ORPHENADRINE 30 MG/ML 2 ML VIAL IM STA (22:21)
[2023-08-16] MEDS: DEXAMETHASONE SOD PHOSPHATE 10 MG/ML 1 ML VIAL IM STA (22:25)
[2023-08-16] MEDS: KETOROLAC 15 MG/ML 1 ML VIAL IM STA (22:31)
[2023-08-16] MEDS: LIDOCAINE 4% PATCH TOPICAL ONE (22:35)
[2023-08-16 23:07] VITALS: BP 112/74; PULSE 70; TEMP 97.6
== END 2023-08-16 23:11 | disposition home or self-care (01) ==
LOC: EC 20:28
DX: S39.012A Strain of muscle, fascia and tendon of lower back, initial encounter (principal); M51.36 Other intervertebral disc degeneration, lumbar region; F17.200 Nicotine dependence, unspecified, uncomplicated; X58.XXXA Exposure to other specified factors, initial encounter; Y99.0 Civilian activity done for income or pay
CPT/HCPCS: 72100; 99283; 96372 ×3; J1100; J2360; J1885